=== PATIENT | male | born 1995 | race Caucasian/White ===

== ENCOUNTER → 2023-06-21 | Outpatient (CLI) | payer OTHER ==
[2023-06-22 04:06] LABS: RUBEOLA (MEASLES) IGG <13.5 AU/mL (Immune >16.4); VARICELLA ZOSTER IGG AB TITER 772 index (Immune >165)
[2023-06-22 06:07] LABS: RUBELLA AB IGG-REFLAB 1.52 index (Immune >0.99)
[2023-06-23 08:05] LABS: QUANTIFERON+, Nil Value 0.15 IU/mL; QUANTIFERON+,Mitogen Value >10.00 IU/mL; QUANTIFERON+,TB1 Antigen Value 1.83 IU/mL; QUANTIFERON, TB GOLD PLUS Positive (Negative)
== END | disposition home or self-care (01) ==
LOC: LABMN 16:46
PROVIDERS: ATTEND Family Medicine
DX: Z02.89 Encounter for other administrative examinations (principal); Z20.828 Contact with and (suspected) exposure to other viral communicable diseases; Z20.1 Contact with and (suspected) exposure to tuberculosis
CPT/HCPCS: 86480; 86592; 86706; 86735; 86762; 86765; 86787; 87340; 87491; 87591